=== PATIENT | female | born 1995 | race Caucasian/White ===

== ENCOUNTER 2023-07-10 07:32 | Outpatient (CLI) | payer OTHER, SELFPAY ==
[2023-07-10 08:52] LABS: Free T4 Free Thyroxine 1.19 ng/mL (0.78-2.19)
[2023-07-13 04:51] LABS: Thyroid Peroxidase Antibodies <1 IU/mL (<9)
== END 2023-07-10 07:33 | disposition home or self-care (01) ==
LOC: ANHOBOP 07:37 → ANHLAB 07:38
PROVIDERS: Visit Provider Obstetrics & Gynecology
DX: E04.9 Nontoxic goiter, unspecified (principal)
CPT/HCPCS: 36415; 84439; 84443; 86376

== ENCOUNTER 2023-08-20 10:07 | Outpatient (CLI) | payer OTHER, SELFPAY ==
--- NOTE | ~2023-08-20 | US_ITS ---
EXAMINATION: US thyroid DATE: 08/20/2023 11:07 INDICATION: Nontoxic goiter, unspecified. TECHNIQUE: Multiple ultrasound images of the thyroid were obtained. COMPARISON: None. FINDINGS: The right thyroid lobe measures 5.5 x 1.6 x 1.9 cm. The left thyroid lobe measures 5.4 x 1.1 x 1.7 c m. In the right thyroid lobe, there is a 4 mm nodule. IMPRESSION: 1. Small thyroid nodule, likely not clinically significant. No follow-up is needed. Reviewed, dictated and finalized at location A. ETIC DENTIST IMPRESSION: 1. Small thyroid nodule, likely not clinically significant. No follow-up is nee ded.
== END 2023-08-20 10:08 | disposition home or self-care (01) ==
LOC: ANHIMG 10:12
PROVIDERS: Visit Provider Obstetrics & Gynecology
DX: E04.1 Nontoxic single thyroid nodule (principal)
CPT/HCPCS: 76536

== ENCOUNTER 2023-12-11 09:02 | Outpatient (CLI) | payer OTHER, SELFPAY ==
[2023-12-11 11:14] LABS: Thyroid Stimulating Hormone Reflex 0.795 uIU/mL (0.465-4.68)
[2023-12-13 06:59] LABS: FSH 5.9 mIU/mL
[2023-12-13 07:08] LABS: DHEA-Sulfate 140 mcg/dL (14-349)
[2023-12-15 14:23] LABS: Testosterone Free 6 pg/mL (0.1-6.4); Testosterone Total 44 ng/dL (2-45)
[2023-12-21 01:49] LABS: Estradiol, Ultrasensitive 30 pg/mL
== END 2023-12-11 09:03 | disposition home or self-care (01) ==
LOC: ANHLAB 09:04
PROVIDERS: Visit Provider Obstetrics & Gynecology
DX: N92.6 Irregular menstruation, unspecified (principal)
CPT/HCPCS: 36415; 82627; 82670; 83001; 83498; 84146; 84402; 84403; 84443

== ENCOUNTER 2023-12-28 07:06 | Outpatient (CLI) | payer OTHER, SELFPAY ==
[2023-12-30 04:54] LABS: Progesterone 12.4 ng/mL
== END 2023-12-28 07:07 | disposition home or self-care (01) ==
LOC: ANHLAB 07:08
PROVIDERS: Visit Provider Obstetrics & Gynecology
DX: N92.6 Irregular menstruation, unspecified (principal)
CPT/HCPCS: 36415; 84144

== ENCOUNTER 2024-02-23 09:46 | Outpatient (CLI) | payer OTHER, SELFPAY ==
[2024-02-23 10:26] LABS: Basophils Percent Auto 0.3 % (0.2-1.2); Eosinophils Percent Auto 0.5 % (0-4.4); Hematocrit 39.8 % (37.0-47.0); Hemoglobin 13.5 g/dL (12.0-15.0); Immature Granulocyte Absolute 0.03 K/mm3 (0.00-0.031); Immature Granulocyte Percent A 0.4 % (0-0.5); Lymphocytes Absolute Auto 1.62 K/mm3 (0.9-3.2); Lymphocytes Percent Auto 20.3 % (18.3-44.2); Mean Corpuscular HGB Conc 33.9 g/dl (32-36); Mean Corpuscular Hemoglobin 30.3 pg (26-34); Mean Corpuscular Volume 89.4 fl (80-100); Mean Platelet Volume 11.7 fl (7.4-10.4); Monocytes Absolute Auto 0.6 K/mm3 (0.1-0.6); Monocytes Percent Auto 7.5 % (2.6-8.5); Neutrophils Absolute Auto 5.7 K/mm3 (1.3-6.7); Platelet Count Result 240 k/mm3 (150-375); Red Blood Count 4.45 M/mm3 (4.2-5.4); Red Cell Distribution Width 13.4 % (11.5-14.5)
[2024-02-23 11:16] LABS: HIV 1/2 Ab P24 Ag Result Negative (Negative)
[2024-02-23 14:19] LABS: Hepatitis B Surface Antigen Negative (Negative); Rubella IgG Antibody 10.4 IU/ML
[2024-02-25 06:15] LABS: Rapid Plasma Reagin Non-Reactive (NonReactive)
[2024-02-25 14:18] LABS: CMV IgG Antibody <0.60 U/mL
== END 2024-02-23 09:47 | disposition home or self-care (01) ==
LOC: ANHLAB 09:47
PROVIDERS: Visit Provider Obstetrics & Gynecology
DX: N91.2 Amenorrhea, unspecified (principal)
CPT/HCPCS: 36415; 84702; 85025; 86592; 86644; 86703; 86747; 86762; 86787; 86850; 86900; 86901; 87086; 87340; G0432

== ENCOUNTER 2024-02-29 15:45 | Outpatient (CLI) | payer OTHER, SELFPAY ==
--- NOTE | ~2024-02-29 | US_ITS ---
EXAMINATION: US OB <= 14 weeks fetus DATE: 02/29/2024 16:02 INDICATION: Amenorrhea, unspecified. TECHNIQUE: Real-time transabdominal pelvic ultrasound was performed. COMPARISON: None. FINDINGS: The uterus measures 14.7 x 8.0 x 9.2 cm. There is an intrauterine gestational sac. A yolk sac is iden tified. The crown rump length measures 5.1 cm, which correlates with an estimated gestational age of 11 weeks and 5 day(s) (+/-) 1 week(s) and 0 day(s). heart motion is identified measuring 154 beats per minute (bpm) by M-mode Doppler. The ovaries are not visualized. There is no free fluid in the pelvis. IMPRESSION: 1. Single living intrauterine gestation with estimated date of delivery of 09/14/2024. Reviewed, dictated and finalized at location A. IMPRESSION: 1. Single living intrauterine gestation with estimated date of delivery of 08/24.
== END 2024-02-29 15:46 ==
LOC: MICIMG 15:46
PROVIDERS: PCP Obstetrics & Gynecology; Visit Provider Obstetrics & Gynecology
DX: N91.2 Amenorrhea, unspecified (principal)
CPT/HCPCS: 76801

== ENCOUNTER 2024-04-25 16:22 | Outpatient (CLI) | payer OTHER, SELFPAY ==
--- NOTE | ~2024-04-25 | US_ITS ---
EXAMINATION: US OB /maternal detail DATE: 04/25/2024 17:12 INDICATION: Encounter for supervision of normal during second trimester TECHNIQUE: Multiple obstetric sonographic images performed. FINDINGS: There is a single living fetus in transverse lie with vertex to maternal right. The placenta is post erior and not low-lying. Amniotic fluid volume is subjectively normal with normal deepest vertical po cket of 4.3 cm. heart rate of 153 beats per minute. The following anatomy was identified as normal: Ventricles, choroid plexus, falx and cava septum pellucidum Cerebellum and cisterna magna Nuchal fold Upper lip Spine Stomach Kidneys Bladder 3 vessel cord and cord insertion Bilateral upper and lower extremities including hands and feet The following biometric data were obtained: BPD: 4.6 cm -> 20 weeks 0 days Head circumference: 17.3 cm -> 19 weeks 6 days Abdominal circumference: 14.8 cm -> 20 weeks 0 days Femur length: 3.3 cm -> 20 weeks 3 days These measurements are concordant. Head circumference to abdominal circumference ratio: 1.17 (normal range 1.07-1.25). Estimated weight: 338 g (+/-) 51 g. or 12 lbs. (+/-) 2 oz. IMPRESSION: 1. Single living fetus with transverse lie with heart rate of 152 bpm. 2. Gestational age by ultrasound of 20 weeks 1 day(s) (+/-) 1 week 3 day(s) with ultrasound estimat ed date of delivery (CAROLYN) of 08/2624. Estimated weight is 80th percentile by Hadlock criteria wh en 09/15/2024 is used as the CAROLYN. Please correlate with clinical information or earlier ultrasounds fo r most accurate CAROLYN. 3. Incomplete anatomic survey with no imaging of the heart or diaphragm obtained. Otherwise nor mal anatomic survey. Reviewed, dictated and finalized at location A. IMPRESSION: 1. Single living fetus with transverse lie with heart rate of 152 bpm. 2. Gestational age by ultrasound of 20 weeks 1 day(s) (+/-) 1 week 3 day(s) w ith ultrasound estimated date of delivery (CAROLYN) of 08/2624. Estimated weig ht is 80th percentile by Hadlock criteria when 09/15/2024 is used as the CAROLYN. Pl ease correlate with clinical information or earlier ultrasounds for most accura te CAROLYN. 3. Incomplete anatomic survey with no imaging of the heart or diaphragm o btained. Otherwise normal anatomic survey.
== END 2024-04-25 16:23 | disposition home or self-care (01) ==
LOC: ANHIMG 16:23
PROVIDERS: PCP Obstetrics & Gynecology; Visit Provider Obstetrics & Gynecology
DX: Z34.92 Encounter for supervision of normal pregnancy, unspecified, second trimester (principal); Z3A.20 20 weeks gestation of pregnancy
CPT/HCPCS: 76805

== ENCOUNTER 2024-06-24 08:21 | Outpatient (CLI) | payer OTHER, SELFPAY ==
[2024-06-24 10:19] LABS: Basophils Percent Auto 0.2 % (0.2-1.2); Eosinophils Absolute Auto 0.1 K/mm3 (0-0.3); Eosinophils Percent Auto 0.6 % (0-4.4); Hematocrit 38.6 % (37.0-47.0); Hemoglobin 12.9 g/dL (12.0-15.0); Immature Granulocyte Absolute 0.05 K/mm3 (0.00-0.031); Immature Granulocyte Percent A 0.5 % (0-0.5); Lymphocytes Absolute Auto 1.57 K/mm3 (0.9-3.2); Lymphocytes Percent Auto 16.2 % (18.3-44.2); Mean Corpuscular HGB Conc 33.4 g/dl (32-36); Mean Corpuscular Hemoglobin 30.2 pg (26-34); Mean Corpuscular Volume 90.4 fl (80-100); Mean Platelet Volume 11.3 fl (7.4-10.4); Monocytes Absolute Auto 0.7 K/mm3 (0.1-0.6); Monocytes Percent Auto 7.2 % (2.6-8.5); Neutrophils Absolute Auto 7.3 K/mm3 (1.3-6.7); Neutrophils Percent Auto 75.3 % (45.5-73.1); Platelet Count Result 241 k/mm3 (150-375); Red Blood Count 4.27 M/mm3 (4.2-5.4); Red Cell Distribution Width 13.7 % (11.5-14.5); White Blood Count 9.7 K/mm3 (4.5-10.0)
[2024-06-24 10:31] LABS: Glucose 1 Hour PP 50gm Dose 89 mg/dL
[2024-06-24 11:09] LABS: HIV 1/2 Ab P24 Ag Result Negative (Negative)
[2024-06-24 14:07] LABS: Rapid Plasma Reagin Non-Reactive (NonReactive)
== END 2024-06-24 08:22 | disposition home or self-care (01) ==
LOC: ANHLAB 08:24
PROVIDERS: PCP Obstetrics & Gynecology; Visit Provider Obstetrics & Gynecology
DX: Z34.90 Encounter for supervision of normal pregnancy, unspecified, unspecified trimester (principal); Z3A.00 Weeks of gestation of pregnancy not specified
CPT/HCPCS: 36415; 82947; 85025; 86592; 86703; G0432

== ENCOUNTER 2024-09-14 16:56 | Inpatient (IN) | payer OTHER, SELFPAY ==
[2024-09-14] VITALS (13 sets, daily range): BP systolic 100–129; BP diastolic 52–83; PULSE 62–85; TEMP 36.5–36.6; BMI 30.9
--- NOTE | 2024-09-14 16:56 | LDADM ---
This patient, Tierra Dominguez, was admitted to Labor/Delivery/Recovery 108 on 09/14/24 at 16:56. Plans for labor, pain management and were discussed with patient. Patient/family oriented to hospital policies and general routines including ID bracelet, bed and alarms, visiting hours, pain management, procedures, bathroom and other care routines, personal items, smoking policy, room service/diet and guest tray routines, security routines, and visiting hours. Patient/Family are encouraged to report perceived risks to care and to ask questions if they do not understand what they are told or what they should do. See OBIX for further documentation.
--- OUTSIDE RECORDS SUMMARY | 2024-09-14 17:03 | XMS_ITS | Encounter Summary ---
Author Organization [facility] Address [facility] [facility] [place] [address] Care Team Providers Care Dynamometer Tester Name Role Phone Unavailable Primary Care Provider Unavailabl e Reason for Referral * Cardiac (Routine) - Pending Review Specialty Diagnoses / Procedures Referred By Contac t Referred To Contact Cardiology Diagnoses History of repair of congenital atrial septal defect (ASD) Procedures ECHO - CUPID NC DOPPLER ECHO PULSED WAVE &/CONT WAVE; CMPL NC DOPPLER ECHO PULSE WAVE&/CONT WAVE; REPEAT Nikia Ellis MD [address] [address] Care Echo Cv [address] [place] [id number] Referral ID Status Reason Start Date Expiration Date V isits Requested Visits Authorized [id number] Pending Review 06/16/2024 06/16/2025 1 1 ILE GRINDER TECHNICIAN Encounter Details Date Type Department Care Team (Latest Contact Info) Description 06/16/2024 Transcribe Orders [facility] [address] [place] [id number] Andree Yoon, RN History of repair of congenital atrial septal defect (ASD) Social History Tobacco Use Types Packs/Day Years Used Date Smoking Tobacco: Never Assessed Sex and Gender Information Value Date Recorded Sex Assigned at Not on file Gender Identity Female 06/18/2024 3:21 PM PROFILE GRINDER TECHNICIAN Sexual Orientation Not on file documented as of this encounter Plan of Treatment Not on file documented as of this encounter Results * ECHO COMPLETE CG (06/30/2024 3:37 PM PROFILE GRINDER TECHNICIAN) MV E pk taniya 34.1 cm/s SSM CV F UJI PACS MV A pk taniya 40.92 cm/s SSM CV F UJI PACS Anatomical Region Laterality Modality Ultrasound 06/30/2024 3:13 PM PROFILE GRINDER TECHNICIAN Narrative 06/30/2024 3:45 PM PROFILE GRINDER TECHNICIAN Name: Tierra Dominguez Patient Exam Info Gender: Female Patient Status: O/P : 1995 Admit Date: 06/30/2024 Exam Date/Time: 06/30/2024 3:13 PM Site: [facility] Current Location: CARE EStaffOrdering Provider: Nikia Ellis Interpreting Physician: Rosemary Hensley MD Creative Services Intern: Kt Barajas [facility] Study Info Procedure: ECHO COMPLETE CG Indications: Z87.74 - History of repair of congenital atrial septal defect (ASD) Maternal Gestational Status GA by EDC: 20 wks , 4 days EDC: 11/13/2024 Type: [place] Age: 28 yrs Lie: Vertex Summary * The echocardiogram was within normal limits. * Small atrial and ventricular septal defects and persistent ductus arteriosus cannot be excluded as findings. Anatomic Relationships Left sided cardiac apex (levocardia). There is normal visceral-cardiac situs, and normal segmental cardiac anatomical relationship. Systemic Veins There is normal systemic venous return. Pulmonary Veins The visualized pulmonary veins drain normally to the left atrium. Right Atrium The right atrial size is normal. Left Atrium The left atrial size is normal. Atrial Septum Patent foramen ovale with open foramen flap. Color flow is right to left. Right Ventricle The right ventricular cavity size is normal. The right ventricular wall thickness is normal. The right ventricular systolic function is normal. RV Outflow Tract The right ventricular outflow tract is normal. Left Ventricle The left ventricular cavity size is normal. The left ventricular wall thickness is normal. The left ventricular systolic function is normal. Ventricular Septum There is no ventricular septal defect with no shunting. LV Outflow Tract The left ventricular outflow tract is normal. Tricuspid Valve The tricuspid valve is structurally normal. The tricuspid inflow pattern is normal. Tricuspid velocity is within the normal range. There is no tricuspid regurgitation. Mitral Valve The mitral valve is structurally normal. The mitral inflow pattern is normal. Mitral velocity is within the normal range. There is no mitral regurgitation. Aorta aortic arch visualized and is without obstruction by 2D, color flow and Doppler. Pulmonary Arteries The main pulmonary artery is normal, with confluent branch pulmonary arteries. Ductus Arteriosus The antegrade flow velocity and pattern in the ductal arch is normal. A normal ductus arteriosus is appreciated. Doppler Flow in the ductus venosus is normal. The umbilical vein flow pattern is normal. The umbilical artery flow pattern is normal. Hydrops Assessment No pericardial effusion. No ascites present. No pleural effusion(s). Rhythm The rhythm is normal. There is 1:1 AV conduction. Pulmonary Valve The pulmonic valve is normal-sized. The transpulmonic velocity is within normal range. There is no pulmonic regurgitation. Aortic Valve The aortic valve is normal-sized. The transaortic velocity is within normal range. There is no aortic regurgitation. Doppler Measurements (Fetus A) Atrioventricular Valves Name Value Normal Z-Score Percentile Atrioventricular Valves Doppler TV E Peak Velocity 0.3 m/s TV A Peak Velocity 0.4 m/s MV E Peak Velocity 0.3 m/s MV A Peak Velocity 0.4 m/s (Fetus A) Semilunar Valves Name Value Normal Z-Score Percentile Semilunar Valves Doppler PV Peak Velocity. 0.7 m/s AV Peak Velocity () 0.4 m/s (Fetus A) Heart Rate Name Value Normal Z-Score Percentile Heart Rate HR 142 bpm Report Signatures Finalized by Rosemary Hensley MD on 06/30/2024 03:45 PM Procedure Note Rosemary Hensley MD - 06/30/2024 Name: Tierra Dominguez Patient Exam Info Gender: Female Patient Status: O/P : 1995 Admit Date: 06/30/2024 Exam Date/Time: 06/30/2024 3:13 PM Site: [facility] Current Location: CARE EStaffOrdering Provider: Nikia Ellis Interpreting Physician: Rosemary Hensley MD Creative Services Intern: Kt Barajas [facility] - Study Info Procedure: ECHO COMPLETE CG Indications: Z87.74 - History of repair of congenital atrial septal defect (ASD) Maternal Gestational Status GA by EDC: 20 wks , 4 days EDC: 11/13/2024 Type: [place] Age: 28 yrs Lie: Vertex Summary * The echocardiogram was within normal limits. * Small atrial and ventricular septal defects and persistent ductus arteriosus cannot be excluded as findings. Anatomic Relationships Left sided cardiac apex (levocardia). There is normal visceral-cardiac situs, and normal segmental cardiac anatomical relationship. Systemic Veins There is normal systemic venous return. Pulmonary Veins The visualized pulmonary veins drain normally to the left atrium. Right Atrium The right atrial size is normal. Left Atrium The left atrial size is normal. Atrial Septum Patent foramen ovale with open foramen flap. Color flow is right toleft. Right Ventricle The right ventricular cavity size is normal. The right ventricularwall thickness is normal. The right ventricular systolic function is normal. RV Outflow Tract The right ventricular outflow tract is normal. Left Ventricle The left ventricular cavity size is normal. The left ventricular wall thickness is normal. The left ventricular systolic function is normal. Ventricular Septum There is no ventricular septal defect with no shunting. LV Outflow Tract The left ventricular outflow tract is normal. Tricuspid Valve The tricuspid valve is structurally normal. The tricuspid inflow patternis normal. Tricuspid velocity is within the normal range. There is notricuspid regurgitation. Mitral Valve The mitral valve is structurally normal. The mitral inflow pattern is normal. Mitral velocity is within the normal range. There is no mitral regurgitation. Aorta aortic arch visualized and is without obstruction by 2D, colorflow and Doppler. Pulmonary Arteries The main pulmonary artery is normal, with confluent branch pulmonary arteries. Ductus Arteriosus The antegrade flow velocity and pattern in the ductal arch is normal.A normal ductus arteriosus is appreciated. Doppler Flow in the ductus venosus is normal. The umbilical vein flow patternis normal. The umbilical artery flow pattern is normal. Hydrops Assessment No pericardial effusion. No ascites present. No pleural effusion(s). Rhythm The rhythm is normal. There is 1:1 AV conduction. Pulmonary Valve The pulmonic valve is normal-sized. The transpulmonic velocity iswithin normal range. There is no pulmonic regurgitation. Aortic Valve The aortic valve is normal-sized. The transaortic velocity is withinnormal range. There is no aortic regurgitation. Doppler Measurements (Fetus A) Atrioventricular Valves Name Value Normal Z-ScorePercentile Atrioventricular Valves Doppler TV E Peak Velocity 0.3 m/s TV A Peak Velocity 0.4 m/s MV E Peak Velocity 0.3 m/s MV A Peak Velocity 0.4 m/s (Fetus A) Semilunar Valves Name Value Normal Z-ScorePercentile Semilunar Valves Doppler PV Peak Velocity. 0.7 m/s AV Peak Velocity () 0.4 m/s (Fetus A) Heart Rate Name Value Normal Z-ScorePercentile Heart Rate HR 142 bpm Report Signatures Finalized by Rosemary Hensley MD on 06/30/2024 03:45 PM Nikia Ellis MD ECHO CUPDIONTE documented in this encounter Visit Diagnoses Diagnosis History of repair of congenital atrial septal defect (ASD)- Primary History of repair of congenital atrial septal defect (ASD) documented in this encounter
--- OUTSIDE RECORDS SUMMARY | 2024-09-14 17:03 | XMS_ITS | Patient Health Summary ---
Author Organization [facility] Address [address] [place] [address] Care Team Providers Care Machine Shop Lead Man Name Role Phone Unavailable Primary Care Provider Unavailabl e Note from [facility],non-owned Affiliates and Associated Physician Practices is amultiple site organization consisting of ambulatory clinics and hospital sitesin [place], [place], [place] and [place]. This disclosure is being madepursuant to the Care Everywhere program and may not contain all information available regarding this patient. Last updated 18.[facility] Social History Tobacco Use Types Packs/Day Years Used Date Smoking Tobacco: Never Assessed Sex and Gender Information Value Date Recorded Sex Assigned at Not on file Gender Identity Female 06/18/2024 3:21 PM CAKE PULLER Sexual Orientation Not on file Procedures * ECHO COMPLETE CG(Performed 06/30/2024) Performed for History of repair of congenital atrial septal defect (ASD) Results * ECHO COMPLETE CG (06/30/2024 3:37 PM CAKE PULLER) MV E pk taniya 34.1 cm/s SSM CV F UJI PACS MV A pk taniya 40.92 cm/s SSM CV F UJI PACS Anatomical Region Laterality Modality Ultrasound 06/30/2024 3:13 PM CAKE PULLER Narrative 06/30/2024 3:45 PM CAKE PULLER Name: Tierra Dominguez Patient Exam Info Gender: Female Patient Status: O/P : 1995 Admit Date: 06/30/2024 Exam Date/Time: 06/30/2024 3:13 PM Site: [facility] Current Location: CARE EStaffOrdering Provider: Nikia Ellis Interpreting Physician: Rosemary Hensley MD Plant Controls Specialist: Kt Barajas [facility] Study Info Procedure: ECHO COMPLETE CG Indications: [...] 06/30/2024 Exam Date/Time: 06/30/2024 3:13 PM Site: [facility] Current Location: CARE EStaffOrdering Provider: Nikia Ellis Interpreting Physician: Rosemary Hensley MD Plant Controls Specialist: Kt Barajas [facility] Study Info Procedure: ECHO COMPLETE CG Indications: [...] 06/30/2024 03:45 PM Nikia Ellis MD ECHO [facility]
--- OUTSIDE RECORDS SUMMARY | 2024-09-14 17:03 | XMS_ITS | Referral Summary ---
Author Organization [facility] Address [address] [facility] [place] [address] Care Team Providers Care Topline Beading Machine Tender Name Role Phone Unavailable Primary Care Provider Unavailabl e Source Comments [facility],non-owned Affiliates and Associated Physician Practices is amultiple site organization consisting of ambulatory clinics and hospital sitesin [place], [place], [place] and [place]. This disclosure is being madepursuant to the Care Everywhere program and may not contain all information available regarding this patient. Last updated 18.[facility] Encounters Date Type Department Care Team Description 06/30/2024 3:15 PM MATRIX BATH ATTENDANT Hospital Encounter [address] [address] Rosemary Hensley MD 06/30/2024 3:15 PM MATRIX BATH ATTENDANT Hospital Encounter [address] [address] Nikia Ellis MD Lehmann, Gloria C, MD Discharge Disposition: Home or Self Care 06/18/[address] [address] Stacy Delgado Future Appointment 06/18/[address] [address] Stacy Delgado Future Appointment 06/16/2024 Transcribe Orders [place] [id number] [place] [address] Andree Yoon RN History of repair of congenital atrial septal defect (ASD) from Last 3 Months Social History Tobacco Use Types Packs/Day Years Used Date Smoking Tobacco: Never Assessed Sex and Gender Information Value Date Recorded Sex Assigned at Not on file Gender Identity Female 06/18/2024 3:21 PM MATRIX BATH ATTENDANT Sexual Orientation Not on file Plan of Treatment Not on file Procedures Procedure Name Priority Date/Time Associated Diagnosis Comments ECHO COMPLETE CG Routine 06/30/2024 3:37 PM MATRIX BATH ATTENDANT History of repair of congenital atrial septal defect (ASD) from Last 3 Months Results * ECHO COMPLETE CG (06/30/2024 3:37 PM MATRIX BATH ATTENDANT) MV E pk taniya 34.1 cm/s SSM CV F UJI PACS MV A pk taniya 40.92 cm/s SSM CV F UJI PACS Anatomical Region Laterality Modality Ultrasound 06/30/2024 3:13 PM MATRIX BATH ATTENDANT Narrative 06/30/2024 3:45 PM MATRIX BATH ATTENDANT Name: Tierra Dominguez Patient Exam Info Gender: Female Patient Status: O/P : 1995 Admit Date: 06/30/2024 Exam Date/Time: 06/30/2024 3:13 PM Site: [facility] Current Location: CARE EStaffOrdering Provider: Nkiia Ellis Interpreting Physician: Rosemary Hensley MD Bread Slicer Machine: Kt Barajas [facility] Study Info Procedure: ECHO COMPLETE [...] 06/30/2024 Exam Date/Time: 06/30/2024 3:13 PM Site: [facility] Current Location: CARE EStaffOrdering Provider: Nikia Ellis Interpreting Physician: Rosemary Hensley MD Bread Slicer Machine: Kt Barajas [facility] Study Info Procedure: ECHO COMPLETE [...] 06/30/2024 03:45 PM Nikia Ellis MD ECHO CUPHI from Last 3 Months Tierra Dominguez Personal/Family Self 1995
--- OUTSIDE RECORDS SUMMARY | 2024-09-14 17:04 | XMS_ITS | Clinical Summary ---
Author Organization [facility] Address [address] [place] [address] Care Team Providers Care Jig Mill Operator Name Role Phone Unavailable Primary Care Provider Unavailabl e Source Comments [facility],non-owned Affiliates and Associated Physician Practices is amultiple site organization consisting of ambulatory clinics and hospital sitesin [place], [place], [place] and [place]. This disclosure is being madepursuant to the Care Everywhere program and may not contain all information available regarding this patient. Last updated 18.[facility] Encounters Date Type Department Care Team Description 06/30/2024 3:15 PM MANAGER OF HOUSEKEEPING Hospital Encounter [address] [address] Rosemary Hensley MD 06/30/2024 3:15 PM MANAGER OF HOUSEKEEPING Hospital Encounter [address] [address] Nikia Ellis MD Lehmann, Gloria C, MD Discharge Disposition: Home or Self Care 06/18/[address] [address] Stacy Delgado Future Appointment 06/18/[address] [address] Stacy Delgado Future Appointment 06/16/2024 Transcribe Orders [place] [id number] [place] [phone] Andree Yoon RN History of repair of congenital atrial septal defect (ASD) from Last 3 Months Social History Tobacco Use Types Packs/Day Years Used Date Smoking Tobacco: Never Assessed Sex and Gender Information Value Date Recorded Sex Assigned at Not on file Gender Identity Female 06/18/2024 3:21 PM MANAGER OF HOUSEKEEPING Sexual Orientation Not on file Plan of Treatment Health Maintenance Due Date Last Done Comments PAP SMEAR 1995 HIV SCREENING 2011 HEPATITIS C SCREENING 08/23/2014 DTAP/TDAP/TD VACCINES (1 - Tdap) 2015 HEPATITIS B VACCINE (1 of 3 - 19+ 3-dose series) 2015 COVID-19 VACCINE (2023-2 5 season) 2024 INFLUENZA VACCINE (#1) 2024 DEPRESSION SCREENING 07/23/2024 ZOSTER VACCINE (1 of 2) 2046 HIB VACCINE Aged Out No longer eligi ble based on patient's age to complete this topic HPV VACCINE Aged Out No longer eligi ble based on patient's age to complete this topic MENINGOCOCCAL (Group B) VACCINE Aged Out No longer eligible based on patient's age to complete this topic MENINGOCOCCAL VACCINE Aged Out No iggy surjit eligible based on patient's age to complete this topic PNEUMOCOCCAL VACCINE Aged Out No long er eligible based on patient's age to complete this topic Procedures Procedure Name Priority Date/Time Associated Diagnosis Comments ECHO COMPLETE CG Routine 06/30/2024 3:37 PM MANAGER OF HOUSEKEEPING History of repair of congenital atrial septal defect (ASD) from Last 3 Months Results * ECHO COMPLETE CG (06/30/2024 3:37 PM MANAGER OF HOUSEKEEPING) MV E pk taniya 34.1 cm/s SSM CV F UJI PACS MV A pk taniya 40.92 cm/s SSM CV F UJI PACS Anatomical Region Laterality Modality Ultrasound 06/30/2024 3:13 PM MANAGER OF HOUSEKEEPING Narrative 06/30/2024 3:45 PM MANAGER OF HOUSEKEEPING Name: Tierra Dominguez Patient Exam Info Gender: Female Patient Status: O/P : 1995 Admit Date: 06/30/2024 Exam Date/Time: 06/30/2024 3:13 PM Site: [facility] Current Location: CARE EStaffOrdering Provider: Nikia Ellis Interpreting Physician: Rosemary Hensley MD Jockey Agent: Kt Barajas [facility] - Study Info Procedure: ECHO COMPLETE [...] 06/30/2024 Exam Date/Time: 06/30/2024 3:13 PM Site: [facility] Current Location: CARE EStaffOrdering Provider: Nikia Ellis Interpreting Physician: Rosemary Hensley MD Jockey Agent: Kt Barajas [facility] - Study Info Procedure: ECHO COMPLETE [...] 06/30/2024 03:45 PM Nikia Ellis MD ECHO CUPID from Last 3 Months Tierra Dominguez Personal/Family Self 1995
[2024-09-14 17:39] LABS: Basophils Percent Auto 0.2 % (0.2-1.2); Eosinophils Absolute Auto 0.1 K/mm3 (0-0.3); Eosinophils Percent Auto 0.4 % (0-4.4); Hematocrit 36.3 % (37.0-47.0); Hemoglobin 12.2 g/dL (12.0-15.0); Immature Granulocyte Absolute 0.06 K/mm3 (0.00-0.031); Immature Granulocyte Percent A 0.5 % (0-0.5); Lymphocytes Absolute Auto 1.95 K/mm3 (0.9-3.2); Lymphocytes Percent Auto 15.6 % (18.3-44.2); Mean Corpuscular HGB Conc 33.6 g/dl (32-36); Mean Corpuscular Hemoglobin 29.4 pg (26-34); Mean Corpuscular Volume 87.5 fl (80-100); Mean Platelet Volume 11.3 fl (7.4-10.4); Monocytes Absolute Auto 0.9 K/mm3 (0.1-0.6); Monocytes Percent Auto 7.1 % (2.6-8.5); Neutrophils Absolute Auto 9.5 K/mm3 (1.3-6.7); Neutrophils Percent Auto 76.2 % (45.5-73.1); Platelet Count Result 223 k/mm3 (150-375); Red Blood Count 4.15 M/mm3 (4.2-5.4); White Blood Count 12.5 K/mm3 (4.5-10.0)
[2024-09-14] MEDS: [UNRECOGNIZED DRUG - REMARK] 1 EACH XX (18:06)
[2024-09-14] MEDS: DINOPROSTONE 10 MG VAG INSERT VAGINAL (18:06)
[2024-09-14] MEDS: LACTATED RINGERS 1,000 ML 125 ML IV CONT (18:07)
[2024-09-14] MEDS: VANCOMYCIN 2,000 MG/NS 500 ML 2,000 MG/500 ML BAG 250 MG IVPB (18:28)
[2024-09-14 18:32] LABS: Syphilis IgG/IgM Antibody Negative (Negative)
[2024-09-14 18:34] LABS: HIV 1/2 Ab P24 Ag Result Negative (Negative)
[2024-09-14 20:59] LABS: Estimated CRCL calculation 126 ml/min; Estimated Glomerular Filt Rate > 60
[2024-09-15] VITALS (103 sets, daily range): BP systolic 97–151; BP diastolic 48–108; PULSE 25–221; RESP 14–16; TEMP 36.6–37; O2SAT 82–100
[2024-09-15] MEDS: LACTATED RINGERS 1,000 ML 125 ML IV CONT (03:00)
--- NOTE | 2024-09-15 03:10 | WPDANESEPP ---
Anes - Eval Pre Procedure Procedure: Labor Epidural Date/Time: 09/15/24 03:10 Preop Diagnosis: Labor Pain Pre Op Diagnosis: IOL Patient Data Age: 29 Gender: F Height: 1.75 m Weight: 95 kg Last Vital Signs Temp 36.6 C 09/15/24 02:45 Pulse 87 09/15/24 03:00 BP 124/78 09/15/24 03:00 Allergies Allergy/AdvReac Type Severity Reaction Status Date / Time Penicillins Allergy Severe Rash Verified 09/14/24 18:32 Sulfa (Sulfonamide Allergy Severe Rash Verified 09/14/24 18:32 Antibiotics) amoxicillin (From Augmentin) Allergy Intermediate Rash Verified 09/14/24 18:32 azithromycin (From Zithromax) Allergy Intermediate Rash Verified 09/14/24 18:32 clavulanic acid (From Allergy Intermediate Rash Verified 09/14/24 18:32 Augmentin) Home Medications ?Medication ?Instructions ?Recorded ?Confirmed ?Type vitamin#30 30 mg iron-10 1 cap PO DAILY 07/09/23 09/14/24 History mg iron-folic acid 1 mg-omg3 capsule aspirin 81 mg tablet,delayed 81 mg PO DAILY 03/31/24 09/14/24 History release (Adult Aspirin Regimen) Laboratory Tests 09/14/24 09/14/24 17:10 17:13 WBC 12.5 H K/mm3 (4.5-10.0) RBC 4.15 L M/mm3 (4.2-5.4) Hgb 12.2 g/dL (12.0-15.0) Hct 36.3 L % (37.0-47.0) MCV 87.5 fl (80-100) MCH 29.4 pg (26-34) MCHC 33.6 g/dl (32-36) RDW 14.0 % (11.5-14.5) Plt Count 223 k/mm3 (150-375) MPV 11.3 H fl (7.4-10.4) Immature Gran % (Auto) 0.5 % (0-0.5) Neut % (Auto) 76.2 H % (45.5-73.1) Lymph % (Auto) 15.6 L % (18.3-44.2) [place] % (Auto) 7.1 % (2.6-8.5) Eos % (Auto) 0.4 % (0-4.4) Baso % (Auto) 0.2 % (0.2-1.2) Lymph # (Auto) 1.95 K/mm3 (0.9-3.2) [place] # (Auto) 0.9 H K/mm3 (0.1-0.6) Eos # (Auto) 0.1 K/mm3 (0-0.3) Baso # (Auto) 0.0 K/mm3 (0.0-0.1) Abs Immat Gran (auto) 0.06 H K/mm3 (0.00-0.031) Absolute Neuts (auto) 9.5 H K/mm3 (1.3-6.7) Absolute Nucleated RBC 0.000 K/mm3 (0.0-0.012) Nucleated RBC % 0.0 % (0.0-0.2) Creatinine 0.70 mg/dL (0.7-1.0) Estim Creat Clear Calc 126 ml/min Estimated GFR > 60 (59 - ) Syphilis IgG/IgM Ab Negative (Negative) HIV 1&2 Ab/P24 Ag 4thGn Negative (Negative) Blood Type O Positive Antibody Screen Negative Patient hx anesthesia problems: none Family hx anesthesia problems: none Results Review: All pre-operative results and documents have been reviewed as part of the pre-operative evaluation. FORMERLY [facility], [facility] Past Medical History Medical History Encounter for routine care HPV (human papilloma virus) infection Abnormal Pap smear of cervix Surgical History Surgical History H/O colposcopy with cervical biopsy normal findings History of open heart surgery age 4 1999 Family History Family History Mother Acute Crohn's disease Father Heart disease Other Factor 5 Leiden mutation, heterozygous Other Leukemia Social History Social History Smoking status: Never smoker Alcohol intake: former Alcohol use details: socially Substance use: never Substance use type: does not use Do You Feel Safe in your Home?: Yes Lack of Transportation: No Lack of Food: Never True Current Housing: I Have Housing Concerned About Future Housing: No Difficulty Paying Gas/Electric Bills: No Difficulty Paying for Meds: No Currently Unemployed: No Education: Bachelor's Degree Difficulty w/ Childcare or Family Care: No Living arrangements: with family Additional living arrangements comments: 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
[2024-09-15] MEDS: VANCOMYCIN 2,000 MG/NS 500 ML 2,000 MG/500 ML BAG 250 MG IVPB (05:21)
[2024-09-15] MEDS: OXYTOCIN 30 UNITS/NS 500 ML 30 UNITS/500 ML BAG IV CONT (05:23)
--- NOTE | 2024-09-15 06:58 | PM.IMHP ---
H&P: HPI History of Present Illness Date/Time: 09/15/24 07:10 Chief Complaint: Elective IOL Narrative: Tierra is a 29yo @ 40.0wks who presented for elective IOL overnight. She is s/p cervidil and reports contractions, had SROM (thin mec) @ 0230. She now has epidural and is comfortable. Her is complicated by: - personal hx ASD with repair...maternal echo normal, echo @ 26wks normal - GBS POSITIVE, will need vancomycin due to allergies Review of Systems Constitutional: Constitutional: Denies chills, Denies fever(s) and Denies headache(s) Eyes: Eyes: Denies change in vision ENT: Denies headache(s) Cardiovascular: Cardiovascular: Denies chest pain and Denies dyspnea Respiratory: Respiratory: Denies dyspnea Genitourinary: Genitourinary: Denies abnormal vaginal bleeding and Denies vaginal discharge Neurologic: Denies headache(s) Psychiatric: Psychiatric: Denies anxiety and Denies depression [facility] Past Medical History Medical History Encounter for routine care HPV (human papilloma virus) infection Abnormal Pap smear of cervix Surgical History Surgical History H/O colposcopy with cervical biopsy normal findings History of open heart surgery age 4 1999 Family History Family History Mother Acute Crohn's disease Father Heart disease Other Factor 5 Leiden mutation, heterozygous Other Leukemia Social History Social History Smoking status: Never smoker Alcohol intake: former Alcohol use details: socially Substance use: never Substance use type: does not use Do You Feel Safe in your Home?: Yes Lack of Transportation: No Lack of Food: Never True Current Housing: I Have Housing Concerned About Future Housing: No Difficulty Paying Gas/Electric Bills: No Difficulty Paying for Meds: No Currently Unemployed: No Education: Bachelor's Degree Difficulty w/ Childcare or Family Care: No Living arrangements: with family Additional living arrangements comments: 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 Gender identity (if verbalized by the patient): Female Sexual Orientation (if Verbalized by the Patient): Straight or Heterosexual Spiritual care concerns: No Meds Home Medications and Allergies Home Medications ?Medication ?Instructions ?Recorded ?Confirmed ?Type vitamin#30 30 mg iron-10 1 cap PO DAILY 07/09/23 09/14/24 History mg iron-folic acid 1 mg-omg3 capsule aspirin 81 mg tablet,delayed 81 mg PO DAILY 03/31/24 09/14/24 History release (Adult Aspirin Regimen) Allergies Allergy/AdvReac Type Severity Reaction Status Date / Time Penicillins Allergy Severe Rash Verified 09/14/24 18:32 Sulfa (Sulfonamide Allergy Severe Rash Verified 09/14/24 18:32 Antibiotics) amoxicillin (From Augmentin) Allergy Intermediate Rash Verified 09/14/24 18:32 azithromycin (From Zithromax) Allergy Intermediate Rash Verified 09/14/24 18:32 clavulanic acid (From Allergy Intermediate Rash Verified 09/14/24 18:32 Augmentin) Exam Const: General: cooperative, healthy appearing and no acute distress Orientation/consciousness: patient oriented x3 Resp: Effort & Inspection: normal respiratory effort Cardio: Rate: regular rate GI: GI Palp: No abdominal tenderness : Other: FHT's: 150's/ mod anna/ + accels/ variable decels - cat 2, reassuring TOCO: ctxs q2-4min Cervix: 9/90/0 Membranes: SROM, thin mec 0225 Presentation: cephalic Skin: General skin exam: normal color Neuro: General: patient oriented x3 Extrem: General: normal to inspection Psych: Appearance: grossly normal Affect: normal affect Attitude: cooperative Assessment and Plan Assessment and plan (1) Encounter for elective induction of labor: Code(s): Z34.90 - Encounter for supervision of normal , unspecified, unspecified trimester Status: Acute Plan - S/p cervidil overnight, SROM, thin mec 0230 - Low dose pitocin - Continuous monitoring; currently reassuring - GBS txt: vancomycin 20mg/kg q8hr IV until delivered - Anesthesia consult PRN pain
--- NOTE | 2024-09-15 08:03 | PM.OBPRVD ---
OB - Vaginal Delivery Note Procedure Delivery date: 09/15/24 Events: Elective Induction of Labor and Positive Group B Strep (GBS) Induction method: Per Cervidil Protocol Delivery monitor: External FHT and External Uterine Route of delivery: Episiotomy description: None Laceration Description: Periurethral (bilateral ) Delivery repair: vicryl Specimen: Yes (placenta) Quantitative Blood Loss (ml): 200 Anesthesia type: Epidural Disposition: Floor Complications: No immediate complications Baby Date of : 09/15/24 Time of : 07:33 Gestational Age by Date: 40 gender: Female presentation: vertex position: Left Occiput Anterior Placenta delivery description: Expressed Cord Vessel Description: 3 Vessels, Nuchal Cord, Reduced and Delayed Cord Clamping score one minute: 9 score five minutes: 9 Narrative: Tierra rapidly progressed to complete dilation with strong desire to push. She began pushing with good maternal effort but contractions were spaced out anywhere from 4-10 minutes. Low-dose Pitocin augmentation was started 2 milliunits. She pushed for a total of 38 minutes with good maternal effort. She delivered the head over intact perineum. Nuchal cord was noted but loose and easily reduced. She easily delivered the infant's shoulders and body without complication. The was immediately placed skin to skin where spontaneous cry was heard. The pediatric team was present for delivery due to thin meconium. Delayed cord clamping was performed. The umbilical cord was then doubly clamped and cut. A segment of the cord was collected for cord gases. The remaining cord blood was collected for typing. With Pitocin running and gentle downward traction on the cord, the placenta delivered without complication. Bimanual massage was performed and good uterine tone with minimal bleeding was noted. She was examined and found to have bilateral periurethral lacerations. The lacerations were repaired in the normal fashion using 3-0 Vicryl and good hemostasis was noted. Her uterus remained firm with minimal bleeding. Sponge, lap, instrument, and needle counts were correct at the end of the procedure. Mom and baby were left bonding in the birthing suite in stable condition.
[2024-09-15] MEDS: OXYTOCIN 30 UNITS/NS 500 ML 30 UNITS/500 ML BAG 125 UNITS IV CONT (08:08)
[2024-09-15] MEDS: BENZOCAINE 20% AER SPR (*SP) 56 GM CAN 1 SPRAY TOPICAL (10:12)
[2024-09-15] MEDS: WITCH HAZEL 40 PADS 1 PAD TOPICAL (10:12)
[2024-09-15] MEDS: IBUPROFEN 600 MG TABLET PO (12:53)
--- NOTE | 2024-09-15 13:11 | PC.NURSE ---
Patient transferred to post room #277 via wheelchair. Support person present. Oriented to unit, room, information board, rooming in, admission packet and security measures. Patient verbalizes understanding.
--- NOTE | 2024-09-15 13:48 | P.PNOB_ITS ---
OB - PN: Subj Subjective Date/time seen: 09/16/24 07:30 Narrative: PPD#1 Tierra reports doing well today. 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 Her pain is controlled. She is tolerating regular diet, voiding, passing gas, and ambulating without issues. She is breast feeding. OB - PN: Obj Data Labs 09/16/24 04:13 09/14/24 17:10 Labs: Laboratory Results - last 24 hr 09/14/24 09/14/24 17:10 17:13 WBC 12.5 H RBC 4.15 L Hgb 12.2 Hct 36.3 L MCV 87.5 MCH 29.4 MCHC 33.6 RDW 14.0 Plt Count 223 MPV 11.3 H Immature Gran % (Auto) 0.5 Neut % (Auto) 76.2 H Lymph % (Auto) 15.6 L [place] % (Auto) 7.1 Eos % (Auto) 0.4 Baso % (Auto) 0.2 Lymph # (Auto) 1.95 [place] # (Auto) 0.9 H Eos # (Auto) 0.1 Baso # (Auto) 0.0 Abs Immat Gran (auto) 0.06 H Absolute Neuts (auto) 9.5 H Absolute Nucleated RBC 0.000 Nucleated RBC % 0.0 Creatinine 0.70 Estim Creat Clear Calc 126 Estimated GFR > 60 Syphilis IgG/IgM Ab Negative HIV 1&2 Ab/P24 Ag 4thGn Negative Blood Type O Positive Antibody Screen Negative OB - PN A/P Assessment and Plan (1) Normal vaginal delivery of first : Code(s): O80 - Encounter for full-term uncomplicated delivery Status: Acute Plan day: 1 Plan: routine care Comments: - PO pain meds - Regular diet - Ambulation and hydration encouraged - Continue putting baby to breast q2-3hr - Discharge home tomorrow AM Time Spent With Patient Time: Total time spent is greater than 50% in coordination of care (as documented) at patient's floor/unit and/or counseling patient: Review of Systems 2 Constitutional: Constitutional: Denies chills, Denies fever(s) and Denies headache(s) Eyes: Eyes: Denies change in vision ENT: Denies dizziness and Denies headache(s) Cardiovascular: Cardiovascular: Denies chest pain, Denies palpitations and Denies dyspnea Respiratory: Respiratory: Denies cough and Denies dyspnea Gastrointestinal: Gastrointestinal: Denies nausea and Denies vomiting Neurologic: Denies dizziness and Denies headache(s) Endocrine: Endocrine: Denies palpitations Exam 2 Const: General: cooperative, comfortable and no acute distress O rientation/consciousness: patient oriented x3 Resp: Effort & Inspection: normal respiratory effort Auscultation: clear to auscultation bilaterally Cardio: Rate: regular rate GI: Inspection: non-distended GI Palp: No abdominal tenderness and Yes Soft to palpation Auscultation: normal bowel sounds : Other: fundus firm Skin: General skin exam: normal color Neuro: General: patient oriented x3 Extrem: General: normal to inspection Psych: Appearance: grossly normal Affect: normal affect Attitude: c ooperative
--- NOTE | 2024-09-15 14:00 | PC.NURSE ---
Primary RN gave patient the phone number to call for assistance as needed. RN felt that patient wanted to try independently to feed baby and preferred to call only if she was unsuccessful.
--- NOTE | 2024-09-15 18:03 | WPDANLDPN2 ---
Anes-Prog Note L&D Date/Time: 09/15/24 18:03 Comfortable throughout: labor and delivery Neuraxial method: epidural Epidural/Spinal procedure site: clean & non-tender Neuro status: Neuro function grossly intact. Cardiovascular status: normal Respiratory status: normal Airway patency: baseline Mental status: baseline Post-Op hydration status: normal Vital Signs: Last Vital Signs Temp 36.7 C 09/15/24 14:15 Pulse 76 09/15/24 14:15 Resp 16 09/15/24 14:15 BP 117/72 09/15/24 14:15 Pulse Ox 100 09/15/24 14:15 O2 Del Method Room Air 09/15/24 14:15 Pain score (VAS): 08/01 I/O: Intake & Output 09/15/24 09/15/24 09/15/24 07:59 15:59 23:59 Intake Total 2000 980 Output Total 200 75 Balance 1800 905 Post-procedural complaints: none Patient feedback: Patient satisfied with anesthetic care.
[2024-09-16 04:30] VITALS: BP 123/83; PULSE 72; RESP 14; TEMP 36.8
[2024-09-16 06:15] LABS: Hemoglobin 11.5 g/dL (12.0-15.0); Mean Corpuscular HGB Conc 32.9 g/dl (32-36); Mean Corpuscular Hemoglobin 29.9 pg (26-34); Mean Corpuscular Volume 90.9 fl (80-100); Mean Platelet Volume 12.6 fl (7.4-10.4); Platelet Count Result 185 k/mm3 (150-375); Red Blood Count 3.85 M/mm3 (4.2-5.4); Red Cell Distribution Width 14.2 % (11.5-14.5); White Blood Count 12.9 K/mm3 (4.5-10.0)
[2024-09-16 07:35] VITALS: BP 111/75; PULSE 74; RESP 16; TEMP 36.5; O2SAT 99
[2024-09-16] MEDS: MULTIVIT/MIN/PREN/FOL AC/IRON TABLET 1 TAB PO (08:07)
[2024-09-16] MEDS: DOCUSATE SODIUM 100 MG CAPSULE PO (08:07)
--- NOTE | 2024-09-16 08:09 | PC.NURSE ---
On 09/16/24, the student, Khadra Monique, provided care and completed [facility] documentation on this patient. I have reviewed the student's documentation and agree with the findings.
[2024-09-16] MEDS: IBUPROFEN 600 MG TABLET PO (08:12)
--- NOTE | 2024-09-16 10:23 | PC.NURSE ---
Observed mother latching independently to the right breast in football position. Discussed the importance of a deep latch and demonstrated how to obtain deeper latch. Mother states minimal pain when infant is currently nursing. Mother is comfortable with and needs minimal assistance. Currently mother has small blisters on her nipples - encouraged to continue using nipple cream and cooling gel pads after feedings and if latch in painful, to re-latch infant with deeper latch. Mother will call for further assistance if needed.
[2024-09-16 20:05] VITALS: BP 120/74; PULSE 66; RESP 16; TEMP 36.6; O2SAT 98
[2024-09-17 07:30] VITALS: BP 134/64; PULSE 73; RESP 16; TEMP 36.4; O2SAT 99
[2024-09-17] MEDS: MULTIVIT/MIN/PREN/FOL AC/IRON TABLET 1 TAB PO (07:36)
[2024-09-17] MEDS: DOCUSATE SODIUM 100 MG CAPSULE PO (07:36)
--- NOTE | 2024-09-17 07:58 | PM.OBDSVD ---
DS: Admitting Diagnosis Discharge Date 09/17/2024 Admitting Diagnosis DS: Discharge Diagnosis Discharge Diagnosis (1) , delivered: Code(s): O80 - Encounter for full-term uncomplicated delivery Status: Acute OB - DS: Summary OB Procedures : None OB Procedures Intrapartum: Spontaneous Vag Delivery OB Procedures: : None Peripartum Data Laceration Description: Periurethral (bilateral ) Episiotomy description: None Time Spent with Patient Time attestation: Total time spent providing and/or coordinating discharge services: DS: Data Data Completed and Pending Pending studies at discharge: Pending at discharge 09/15/24 07:37 Surgical [PTH] Routine Discharge Plan Discharge Attending physician on discharge: Nikia Ellis Discharging Clinician: Nikia Ellis Anticipated Discharge Date/Time: 09/17/24 08:00 Patient Disposition: Home, Self-Care Activity: may shower and pelvic rest Diet: regular Patient Instructions: Vaginal Delivery (DC) Patient Language: Icelandic Stand Alone Forms: General Discharge Information Follow-up/Referrals: Nikia Ellis MD [Physician] - 4 Weeks Discharge Medications: New docusate sodium [Colace] 100 mg capsule 100 mg PO BID Qty: 90 0RF acetaminophen 500 mg tablet 1,000 mg PO TID Qty: 60 0RF ibuprofen 600 mg Tablet 600 mg PO Q6H PRN (Reason: Cramping) Qty: 60 0RF Continued PNV #[id number] 30 mg iron-10 mg iron-1 mg capsule 1 cap PO DAILY Discontinued aspirin [Adult Aspirin Regimen] 81 mg tablet,delayed release (DR/EC) 81 mg PO DAILY Date of admission: 09/14/24 16:56 Primary Care Provider: UNKNOWN,DOCTOR Admitting Provider: Nikia Ellis Attending physician on admission: Nikia Ellis Condition: Stable
--- NOTE | 2024-09-17 08:27 | PC.NURSE ---
Per patient, okay with seeing her in 4 weeks in the office. No follow up needed in [facility]. has appointment tomorrow AM with pediatrican.
--- NOTE | 2024-09-17 08:40 | PC.NURSE ---
Consulted with mother concerning needs and she shared her ability to independently latch infant optimally. Mother is feeding appropriately for growth of and understands stimulating infant to eat if needed. Infant has had appropriate feedings in the last 24 hours meets the outcomes for weight, output, blood sugar and jaundice at this time. Mom feeds mostly in football hold and wonders if that is okay or if she needs to rotate positions. We reviewed that rotating can assist with sore nipples and plugged ducts for increased breast drainage, but that if football works well for them they can continue using it as often as desired. Reinforced understanding of milk production, transition of milk, signs of adequate intake, transition of stool, prevention/relief of engorgement, plugged ducts, mastitis, responsive watching for feeding cues, the different methods of stimulating infant to breastfeed 1-3 hours after the start of the last feeding, community resources, and when to call a provider using the resource of the feeding sheet along with the mom and baby guide. Advised parents to expect cluster feeding through the night again and mom states that her breasts are feeling firmer today. Mother voiced understanding of the information shared, is confident to continue effectively her at home, when to call for assistance, denies any additional assistance or education at this time. Reported to the Primary RN.
--- NOTE | 2024-09-17 10:27 | PC.NURSE ---
On 09/17/24, the student, Louie Feng, provided care and completed [facility] documentation on this patient. I have reviewed the student's documentation and agree with the findings.
== END 2024-09-17 12:10 | disposition home or self-care (01) | DRG 807 ==
LOC: ANHOB2 09-15 13:49 → ANHLDR 09-18 08:23 → ANHOB2 09-18 08:23
PROVIDERS: Admitting Provider Obstetrics & Gynecology; Visit Provider Obstetrics & Gynecology
DX: O99.824 Streptococcus B carrier state complicating childbirth (principal); Z37.0 Single live birth; Z3A.40 40 weeks gestation of pregnancy; O69.81X0 Labor and delivery complicated by cord around neck, without compression, not applicable or unspecified; O71.82 Other specified trauma to perineum and vulva; O77.0 Labor and delivery complicated by meconium in amniotic fluid; Z87.74 Personal history of (corrected) congenital malformations of heart and circulatory system
CPT/HCPCS: 36415; 82565; 85025; 85027; 86593; 86703; 86850; 86900; 86901; 88307; A9270; G0432; J2590; J2795; J3370; J7120